=== PATIENT | female | born 1950 | race Caucasian/White ===

== ENCOUNTER 2018-08-29 16:39 | Emergency (ER) | payer OTHER ==
[2018-08-29 17:00] VITALS: BMI 25.4
--- NOTE | 2018-08-29 17:11 | PDOC ---
History of Present Illness - General Chief Complaint: Injury Stated Complaint: TWISTED ANKLE Time Seen by Provider: 08/29/18 16:48 - History of Present Illness Initial Comments: 68 y/o F w/PMH of asthma who presents to the ER she was shopping at the grocery store where she inverted her L ankle and fell without head trauma/sat down as she was going down. As she was attempting to get up she lost consciousness according to her for 30 seconds and was disoriented for a short period of time afterwards but only briefly. She denies N/V/F/C, CP, SOB, light- headedness or dizziness at this time, dysuria, change in BMs. She currently has pain on along the dorsum of her foot over the ankle. Past History - Past Medical History Allergies/Adverse Reactions: Allergies Allergy/AdvReac Type Severity Reaction Status Date / Time No Known Allergies Allergy Unverified 08/29/18 17:28 Home Medications: Ambulatory Orders Salmeterol/Fluticasone [Advair 100Mcg/50Mcg -] 1 puff IH PRN 08/29/18 Asthma: Yes COPD: No - Suicide/Smoking/Psychosocial Hx Smoking History: Never smoked Have you smoked in the past 12 months: No Information on smoking cessation initiated: No Hx Alcohol Use: No Drug/Substance Use Hx: No Substance Use Type: None Review of Systems - Review of Systems Able to Perform ROS?: Yes Constitutional: No: Chills, Fever Respiratory: No: Shortness of Breath Cardiac (ROS): No: Chest Pain, Lightheadedness ABD/GI: No: Nausea, Vomiting, Abdominal cramping : No: Dysuria, Frequency Musculoskeletal: Yes: Joint Pain (L ankle) Neurological: Yes: Other (+LOC). No: Headache *Physical Exam - Vital Signs Last Vital Signs Temp Pulse Resp BP Pulse Ox 98.2 F 88 16 124/81 100 08/29/18 16:40 08/29/18 16:40 08/29/18 16:40 08/29/18 16:40 08/29/18 16:40 - Physical Exam General Appearance: Yes: Appropriately Dressed, Apparent Distress HEENT: positive: EOMI, Normal Voice Respiratory/Chest: positive: Lungs Clear, Normal Breath Sounds. negative: Respiratory Distress, Accessory Muscle Use Cardiovascular: positive: Regular Rhythm, Regular Rate, S1, S2. negative: Edema Gastrointestinal/Abdominal: positive: Normal Bowel Sounds, Soft. negative: Tender Musculoskeletal: positive: Other (Full ROM in LLE) Extremity: positive: Normal Range of Motion, Tender (Mildly TTP of L ankle). negative: Swelling, Erythema, Inflammation Neurologic: positive: drawing tender II-XII NML intact, Fully Oriented, Alert, Normal Mood/ Affect, Normal Response, Motor Strength 5/5 Medical Decision Making - Medical Decision Making 08/29/18 17:24 Will check XR of LLE / ankle to r/o fracture. Will check EKG, CBC, CMP, trop. Would not like pain medicine at this time. Has ice pack on ankle currently. 08/29/18 18:10 Pt is refusing EKG and blood work. She states she only had "the wind knocked out of her" and she would like to go home after getting XR results. 08/29/18 18:46 Pt would like to sign out AMA. Does not want to wait for XR results of ankle. Risks of signing out AMA explained to patient including but not limited to , disability, further syncopal events, worsening of ankle injury, possibility of needing further interventions such as surgery for current symptoms. Form signed by both patient and . Ankle wrapped in leonila bandage. Told to apply ice, rest ankle, and keep elevated. 08/29/18 19:01 *DC/Admit/Observation/Transfer Diagnosis at time of Disposition: Ankle sprain, Loss of consciousness - Discharge Dispostion Disposition: AGAINST MEDICAL ADVICE Decision to Admit order: No - Referrals - Patient Instructions Additional Instructions: You are signing out against medical advice. You run the risk of worsening of current symptoms, disability, or even . Come back to the ER for completion of your medical care. Follow up with your primary care physician. If your current symptoms worsen or if you develop new concerning symptoms come back to the ER. - Post Discharge Activity
--- NOTE | 2018-08-29 18:58 | PDOC ---
Attending Attestation - Resident Resident Name: Ambrosio Bush - ED Attending Attestation I have performed the following: I have examined & evaluated the patient, The case was reviewed & discussed with the resident, I agree w/resident's findings & plan, Exceptions are as noted - HPI HPI: 08/29/18 19:01 The patient is a 68 year old female, with a significant past medical history of asthma, who presents to the emergency department s/p inverted ankle. As per patient, she was grocery shopping when she was walking on uneven pavement when she inverted her left ankle. Pt landed onto her knees, with no head strike. When her attempted to pick her back up, she lost consciousness for "a few seconds" without any preceding symptoms. reports she had no shaking movements, or incontinence. He reports she was not confused and was back at her normal baseline immediately after coming to. She denies preceding dizziness, palpitations, CP, SOB, nausea. She denies any numbness, tingling, chest pain, or SOB. She denies recent fevers , chills, headache. She denies recent vomit, diarrhea or constipation. She denies recent dysuria, frequency, urgency or hematuria. Allergies: NKA Past surgical history: None reported. Social history: Nonsmoker. Denies EtOH use and recreational drug use. - Physicial Exam PE: 08/29/18 19:05 GENERAL: Awake, alert, and fully oriented, in no acute distress HEAD: No signs of trauma EYES: EOMI, sclera anicteric, conjunctiva clear ENT: Hearing grossly normal, nares patent, oropharynx clear without exudates. Moist mucosa NECK: Normal ROM, supple, no lymphadenopathy, JVD, or masses LUNGS: Breath sounds equal, clear to auscultation bilaterally. No wheezes, and no crackles HEART: Regular rate and rhythm, normal S1 and S2, no murmurs, rubs or gallops ABDOMEN: Soft, nontender, normoactive bowel sounds. No guarding, no rebound. No masses EXTREMITIES: L ankle with mild dorsal midfoot ttp and mild edema. No deformities. 2+ DP and TP pulse. Full strength dorsiflexion and plantar flexion. Normal distal sensation. WWP. Able to bear weight. BACK: No midline spinal tenderness in cervical/thoracic/lumbar region NEUROLOGICAL: Normal speech, cranial nerves intact, negative pronator drift, 5/ 5 strength in all 4 extremities, normal sensation to light touch in all 4 extremities, normal cerebellar exam, antalgic but steady gait, normal reflexes and tone SKIN: Warm, Dry, normal turgor, no rashes or lesions noted. - Medical Decision Making 08/29/18 19:09 68yo F hx asthma presents to the ED with L ankle injury followed by syncopal episode. Vitals wnl. Exam with dorsal midfoot ttp, no sig deformities. XR read by me appears normal, official radiology read pending. Given syncope without prodrome, we recommended labs, EKG, cardiac monitoring. Pt adamantly refuses to have any further testing as her family is visiting at this time. She also believes she passed out because of the shock of falling unexpectedly. The patient is clinically sober, free from distracting injury, appears to have intact insight and judgment and reason and in my opinion has the capacity to make decisions. The patient presents with syncope. I have explained that I am concerned that this may represent a cardiac arrhythmia, stroke, heart attack; she has verbalized an understanding of my concerns. I have told the patient that while she feels better now, she could still have a cardiac arrhythmia, stroke, heart attack. I have discussed the need for an EKG, labs, and cardiac monitoring to get more information about potential causes of the patients syncope. I have told the patient that if she leaves and has recurrent syncope, she could get much worse, could become critically ill, and could possibly become disabled or . I have offered to give the patient more pain medication. I have asked her to stay in the hospital for monitorin. I have discussed these concerns with the patients who is at the bedside and he is unable to convince her to stay for further evaluation. The patient is not willing to undergo labs, monitoring, EKG. She is unwilling to stay overnight for monitoring. She is refusing any further care and is leaving against medical advice. I am unable to convince the patient to stay, I have asked her to return as soon as possible to complete their evaluation. I have answered all their questions.
[2018-08-29 19:02] VITALS: BP 126/72; PULSE 86; TEMP 98.9
== END 2018-08-29 19:05 | disposition left against medical advice (07) ==
LOC: JER 16:39
DX: S93.402A Sprain of unspecified ligament of left ankle, initial encounter (principal); R55 Syncope and collapse; X50.1XXA Overexertion from prolonged static or awkward postures, initial encounter; Y93.89 Activity, other specified; Y92.512 Supermarket, store or market as the place of occurrence of the external cause; Y99.8 Other external cause status
CPT/HCPCS: 73610-TC-LT-FY; 73630-TC-LT; 99282-25